=== PATIENT | male | born 1950 | race Caucasian/White ===

== ENCOUNTER 2017-01-15 14:34 | Emergency (ER) | payer OTHER ==
[~2017-01-15] VITALS: Ht 170.2 cm; Wt 90.5 kg
[2017-01-15 14:34] VITALS: BP 157/76; PULSE 97; RESP 18; TEMP 99.6; O2SAT 98
[~2017-01-15 14:34] MED LIST: ABIL15TA2 PO; ABIL5TAB6 PO; DIVA250ER PO; HCTZ25 PO; HYDR12.56 PO; LISI-586 PO; LISI20 PO; LORA.5 PO; LORA10 PO; MECL25 PO; TEMA15 PO; VIST25CA PO
[2017-01-15] MEDS ORDERED: LISI20TA PO (14:46)
[2017-01-15] MEDS ORDERED: ABIL15TA3 PO (14:46)
[2017-01-15] MEDS ORDERED: DEPA500T3 PO (14:46)
--- NOTE | 2017-01-15 14:51 | PD ---
HPI Chief Complaint: Injury Time Seen by Provider: 14:38 Travel History International Travel<30 days: No Contact w/Intl Traveler<30days: No Traveled to known affect area: No History of Present Illness HPI TWISTED RIGHT ANKLE, PAINFUL, 08/26, WORSENED BY AMBULATING/WEIGHT BEARING....NO ALLEVIATING FACTORS......STATED THAT HE WAS IN [place] WHEN HE TWISTED HIS ANKLE ORIGINALLY, NOW OVER LAST COUPLE DAYS WORSENING ANKLE PAIN AND RIGHT KNEE PAIN SINCE THEN...NO LOC PFSH Past Medical History Anxiety: Yes Depression: Yes Cancer: No Cardiovascular Problems: Yes (Hypertension) Diabetes: No Diminished Hearing: No Genitourinary: Yes (PROSTATE BIOPSY) Headaches: No Hypertension: Yes Psychiatric: No Immunizations Current: Yes Seizures: No Social History Alcohol Use: Yes (Socially) Tobacco Use: No (Quit ) Substance Use: No (OCCASIONAL) Allergies-Medications (Allergen,Severity, Reaction): Coded Allergies: No Known Allergies (Unverified Adverse Reaction, Unknown, 01/15/17) Reported Meds & Prescriptions Reported Meds & Active Scripts Active Codeine-Acetaminophen 30-300 mg Tab 1 Tab PO Q4H PRN Reported Lisinopril-Hctz 20-12.5 Mg Tab 1 Tab PO DAILY Depakote ER (Divalproex Sodium) 500 Mg Kenneth 1,000 Mg PO DAILY Abilify (Aripiprazole) 15 Mg Tab 15 Mg PO DAILY Review of Systems Except as stated in HPI: all other systems reviewed are Neg General / Constitutional: No: Fever Eyes: No: Visual changes HENT: No: Headaches Cardiovascular: No: Chest Pain or Discomfort Respiratory: No: Shortness of Breath Gastrointestinal: No: Abdominal Pain Genitourinary: No: Dysuria Musculoskeletal: Positive: Pain (RT ANKLE AND KNEE PAIN S/P FALL) Skin: No Rash Neurologic: No: Weakness Psychiatric: No: Depression Endocrine: No: Polydipsia Hematologic/Lymphatic: No: Easy Bruising Physical Exam Narrative GENERAL: SKIN: Warm and dry. HEAD: Atraumatic. Normocephalic. EYES: Pupils equal and round. No scleral icterus. No injection or drainage. ENT: No nasal bleeding or discharge. Mucous membranes pink and moist. NECK: Trachea midline. No JVD. CARDIOVASCULAR: Regular rate and rhythm. RESPIRATORY: No accessory muscle use. Clear to auscultation. Breath sounds equal bilaterally. GASTROINTESTINAL: Abdomen soft, non-tender, nondistended. MUSCULOSKELETAL: Extremities without clubbing, cyanosis, MILD DIFFUSE RT ANKLE edema. No obvious deformities. NEUROLOGICAL: Awake and alert. No obvious cranial nerve deficits. Motor grossly within normal limits. Five out of 5 muscle strength in the arms and legs. Normal speech. PSYCHIATRIC: Appropriate mood and affect; insight and judgment normal. Data Data Last Documented VS Vital Signs Date Time Temp Pulse Resp B/P (MAP) Pulse Ox O2 Delivery O2 Flow Rate FiO2 01/15/17 15:53 95 18 168/80 (109) 97 Room Air 01/15/17 14:34 99.6 Orders Orders Ankle, Complete ([id number]) (01/15/17 ) Knee, Complete (4vws) (01/15/17 ) Ketorolac Inj (Toradol Inj) (01/15/17 16:00) Ed Discharge Order (01/15/17 16:27) Support Splint (01/15/17 16:35) MDM Medical Decision Making Medical Screen Exam Complete: Yes Emergency Medical Condition: Yes Medical Record Reviewed: Yes Differential Diagnosis RT ANKLE FX V RT ANKLE DISLOCATION V SUBLUXATION V KNEE FX V KNEE DISLOCATION/ SUBLUXATION Narrative Course XRAY NEG FOR FX/DISLOCATION/SUBLUXATION Diagnosis Primary Impression: Ankle sprain Qualified Codes: S93.411A - Sprain of calcaneofibular ligament of right ankle , initial encounter Additional Impression: KNEE ABRASION Referrals: Fly Pagan DPM FOR FURTHER CARE OF MODERATE ANKLE SPRAIN Patient Instructions: Abrasion (ED), Ankle Sprain (ED), General Instructions Scripts Codeine-Acetaminophen (Codeine-Acetaminophen) 30-300 mg Tab 1 TAB PO Q4H Y for PAIN, #15 TAB 0 Refills Prov: Gregorio Powell MD 01/15/17 Disposition: 01 DISCHARGE HOME Condition: Stable Gregorio Powell MD Jan 15, 2017 14:51
[2017-01-15 15:53] VITALS: BP 168/80; PULSE 95; RESP 18; O2SAT 97
[2017-01-15] MEDS ORDERED: KETOROLAC TROMETHAMINE 60 MG/2 ML (IM) VIAL IM ONE (16:00)
--- NOTE | 2017-01-15 16:07 | RADRPT ---
EXAM DATE/TIME: 01/15/2017 15:04 [facility] COMPARISON: No previous studies available for comparison. INDICATIONS : Right ankle pain from unknown injury. MEDICAL HISTORY : Gout. SURGICAL HISTORY : None. ENCOUNTER: Initial ACUITY: 3 days PAIN SCORE: 6/10 LOCATION: Right ankle. FINDINGS: 4 views of the right ankle show mild loss or arthritic changes involving the tibiotalar joint. No fra cture or dislocation. No joint effusion. Soft tissues are unremarkable. CONCLUSION: Osteoarthritis. No acute abnormality. Yoni Russell Jr., MD on January 15, 2017 at 16:04 Board Certified Radiologist. This report was verified electronically.
--- NOTE | 2017-01-15 16:08 | RADRPT ---
EXAM DATE/TIME: 01/15/2017 15:04 [facility] COMPARISON: No previous studies available for comparison. INDICATIONS : Right knee pain from unknown injury. MEDICAL HISTORY : Gout. SURGICAL HISTORY : None. ENCOUNTER: Initial ACUITY: 3 days PAIN SCORE: 6/10 LOCATION: Right knee. FINDINGS: Four view examination of the right knee demonstrates no evidence of fracture or dislocation. Bony mi neralization is normal. The articular surfaces are intact. A small joint effusion. CONCLUSION: Small joint effusion. Yoni Russell Jr., MD on January 15, 2017 at 16:05 Board Certified Radiologist. This report was verified electronically.
[2017-01-15] MEDS ORDERED: CODE30TA2 PO (16:26)
[2017-01-15] MEDS ORDERED: WALKER/ADULT/FO1 MIS (16:52)
[2017-01-15 16:55] VITALS: BP 166/72
[2017-01-15 17:00] VITALS: RESP 16
== END 2017-01-15 16:55 | disposition home or self-care (01) ==
LOC: PHED 14:34
DX: S93.411A Sprain of calcaneofibular ligament of right ankle, initial encounter (principal); S80.211A Abrasion, right knee, initial encounter; X50.1XXA Overexertion from prolonged static or awkward postures, initial encounter
CPT/HCPCS: 73564; 73610; 96372; 99284; J1885; L1906